=== PATIENT | female | born 2000 | race Two or more races ===

== ENCOUNTER 2023-04-18 08:07 | Outpatient (OUT) | payer BC, SELFPAY ==
--- NOTE | 2023-04-18 08:15 | XR_ITS ---
[facility] [place] [facility] [id number] Patient Name: VERONICA CLINTON MRN: [id number] date: 2000 Sex: F Assigned Patient Location: [facility] Current Patient Location: [facility] Accession/Order Number: [id number] Exam Date: 04/18/2023 08:33 Report Date: 04/18/2023 10:49 At the request of: YUNG KEVIN Procedure: XR abdomen 1V EXAM: XR abdomen 1V HISTORY: Ureteral Stone N20.1 COMPARISON: None. TECHNIQUE: AP view of the abdomen. FINDINGS: Nonobstructive bowel gas pattern is noted. There is no suspicious calcification. The osseous structures are intact. XR/XR abdomen 1V IMPRESSION: Nonobstructive bowel gas pattern. No suspicious renal calcification. Electronically authenticated by: ALLIE BECK Date: 04/18/2023 10:49
== END 2023-04-18 08:08 | disposition home or self-care (01) ==
LOC: RAD 08:11
PROVIDERS: Visit Provider Urology
DX: N20.1 Calculus of ureter (principal)
CPT/HCPCS: 74018

== ENCOUNTER 2025-03-29 07:36 | Outpatient (OUT) | payer BC, SELFPAY ==
[2025-03-29 08:56] LABS: Anion Gap 16.6; Blood Urea Nitrogen 15.0 mg/dL (7.0-18.0); Calcium 9.3 mg/dL (8.5-10.1); Carbon Dioxide 24.7 mmol/L (21.0-32.0); Chloride 106 mmol/L (98-107); Estimated GFR (African America >60 (>=60 mL/min/1.73m^2); Estimated GFR (Non-African Ame >60 (>=60 mL/min/1.73m^2); Glucose 95 mg/dL (74-106); Potassium 4.3 mmol/L (3.5-5.1); Sodium 143 mmol/L (136-145); Uric Acid 5.1 mg/dL (2.6-6.0)
== END 2025-03-29 07:37 | disposition home or self-care (01) ==
DX: N20.1 Calculus of ureter (principal)
CPT/HCPCS: 36415; 80048; 83970; 84550